=== PATIENT | male | born 1980 | race Caucasian/White ===

== ENCOUNTER 2021-01-12 15:28 | Emergency (ER) | payer OTHER ==
[2021-01-12] MEDS ORDERED: ROBAXIN500 MG PO (17:48)
[2021-01-12] MEDS ORDERED: NAPROXEN500 MG PO (17:48)
== END 2021-01-12 18:00 | disposition home or self-care (01) ==
LOC: FER 15:28
DX: S16.1XXA Strain of muscle, fascia and tendon at neck level, initial encounter (principal); S29.012A Strain of muscle and tendon of back wall of thorax, initial encounter; Z88.0 Allergy status to penicillin; Z88.2 Allergy status to sulfonamides; X50.9XXA Other and unspecified overexertion or strenuous movements or postures, initial encounter
CPT/HCPCS: 99283; J1885